=== PATIENT | female | born 1945 | race Caucasian/White ===

== ENCOUNTER 2021-03-05 07:32 | Day surgery (SDC) | payer MEDICARE, OTHER ==
[~2021-03-05] VITALS: Ht 157.5 cm; Wt 45.5 kg
[2021-03-05 08:06] LABS: ALBUMIN 3.9 g/dL (3.4-5.0); ANION GAP 13.1 mmol/L (8-16); BILIRUBIN - TOTAL 0.2 mg/dL (0.2-1.3); CALCIUM 9.5 mg/dL (8.5-10.1); CARBON DIOXIDE 28.5 mmol/L (21.0-32.0); CREATININE - SERUM 0.8 mg/dL (0.6-1.3); POTASSIUM - SERUM 3.6 mmol/L (3.5-5.1); PROTEIN - SERUM 7.7 g/dL (6.4-8.2)
[2021-03-05 08:18] LABS: BASOPHILS 0.8 % (0-2); EOSINOPHILS 2.1 % (0-7); HEMOGLOBIN 14.3 g/dL (12-16); IMMATURE GRANULOCYTES 0.2 % (0-5); LYMPHOCYTE ABS# 2.32 10x3/uL (1.18-3.74); LYMPHOCYTES 25.2 % (15-50); MCH 31.3 pg (26.0-34.0); MCHC 32.5 g/dL (31.0-37.0); MCV 96.3 fL (80.0-100.0); MEAN PLATELET VOLUME 9.7 fL (7.4-10.4); MONOCYTES 7.1 % (2-11); NEUTROPHIL ABS# 5.95 10x3/uL (1.56-6.13); NEUTROPHILS 64.6 % (40-80); RBC 4.57 10x6/uL (4.00-5.40); RDW 13.3 % (11.5-14.5); WBC 9.2 10x3/uL (4.8-10.8)
[2021-03-05 08:20] LABS: APTT 30.7 SECONDS (22.8-39.4); INR 1.05 (0.85-1.17); PROTIME 12.7 SECONDS (11.6-15.0)
[2021-03-05 08:25] LABS: PLATELET COUNT 408 10x3/uL (130-400)
[2021-03-05] MEDS ORDERED: VALIUM5 MG PO (08:48)
[2021-03-05] MEDS ORDERED: DILANTIN100 MG PO (08:48)
[2021-03-05] MEDS ORDERED: HYDROCODON-ACE1 EAC7 PO (08:49)
[2021-03-05 08:55] VITALS: BP 146/67; Ht 157.5 cm; Wt 45.5 kg
--- NOTE | 2021-03-05 14:36 | NUR ---
1250 EYE CHECKED BY Ghada COX CRNA NO ABRASION NOTED. Jewel TAVERAS R.N. 1300 UP TO BATHROOM, VOIDED. BACK TO BED. IV DC'ED WITH CATH INTACT. DRESSING. WAITING FOR ROUNDS BY DR. PFEIFFER & ORDERS. Jewel TAVERAS [address] PFEIFFER. PT DRESSED. AWAKE & ALERT. PROVIDED WITH D/C INFORMATION INCLUDING: MED REC, SHEET LISTING NSAIDS TO HOLD 14 DAYS, RTC APPT., & POST ENDOSCOPY D/C INSTRUCTIONS. PT VOICED UNDERSTANDING. TO PRIVATE CAR PER WHEELCHAIR BY STAFF. HOME WITH MR. BIRD. Jewel TAVERAS R.N.
--- NOTE | 2021-03-06 12:19 | OP ---
PATIENT NAME: ROBERT BIRD MEDICAL RECORD: [id number] :49 LOCATION:D.OPS ADMISSION DATE: SURGEON: LUIS PFEIFFER MD DATE OF OPERATION: 03/05/2021 PREOPERATIVE DIAGNOSES: 1. Iron deficiency anemia. 2. Arteriovenous malformation of the cecum. POSTOPERATIVE DIAGNOSES: 1. Iron deficiency anemia. 2. Arteriovenous malformation of the cecum with a 1.1 cm flat polyp most easily identifiable with narrow band imaging. PROCEDURES: 1. Total colonoscopy to cecum. 2. Argon plasma coagulation treatment due to arteriovenous malformation of the cecum. 3. Placement of 1 endoscopic metallic clip for procedural hemostasis. 4. Hot biopsy forceps polypectomy x1. SURGEON: Luis Pfeiffer M.D. MACHINE EGG WASHER: None. BLOOD LOSS: Minimal. ANESTHESIA: IV sedation. COMPLICATIONS: None. The risks, possible complications, and alternatives of the procedure were explained to the patient. She elects to proceed. DESCRIPTION OF PROCEDURE: The patient was extubated in the endoscopy suite electively on 03/05/2021. IV sedation was induced by the anesthesia staff. The patient was placed in the Sanches position. Digital rectal examination was performed. A colonoscope was inserted through the anus. It was easily advanced to the cecum. The prep was adequate. Within the cecum, I noted a single arteriovenous malformation, which was probably a 1.5 cm malformation. It was actively bleeding. This malformation was directly overlying a large submucosal artery. There was a good bit of pulsatility. I knew that treating this arteriovenous malformation could lead to significant hemorrhage. I prepared the endoscopy staff for this. I then obtained the argon plasma head correction officer. I turned it to the esophageal setting in the forced mode. I then completely treated the arteriovenous malformation. We then began having some submucosal punctate bleeding. I then deployed a single endoscopic clip, which achieved complete hemostasis. I irrigated and there was no bleeding. Slowly withdrew the endoscope. A combination of normal imaging and narrow band imaging were utilized. One polyp was noted. It is very likely that this polyp was noted during this endoscopy due to the excellent prep. A single hot biopsy forceps polypectomy was performed. The pullback was greater than 18-minute pullback. I dragged the folds. A retroflexed view was obtained in the rectum. I then unretroflexed the scope and removed it under direct vision. OPERATIVE REPORT [id number] ROBERT BIRD I will see the patient in my office in 2 to 3 weeks to review the results of the biopsies. My plan is to return the patient's endoscopic care back over to Dr. Fregoso. TRANSINT:[id number] Voice Confirmation ID: [id number] DOCUMENT ID: [id number] LUIS PFEIFFER MD at 1219 CC: DEENA FREGOSO MD and MANJINDER LEVI [id number] DICTATION DATE: 03/05/21 185 SENIOR MECHANICAL TECHNICIAN: 03/06/21 0054 [facility] 03/05/21 [place] [id number] [place] [id number]
--- NOTE | 2021-03-07 16:40 | HP ---
PATIENT: ROBERT BIRD MEDICAL RECORD: [id number] ACCOUNT: [id number] LOCATION:D.OPS : 49 ADMISSION DATE: 03/05/21 PCP: SYDNEY CAMPOS MD HISTORY AND PHYSICAL EXAMINATION HISTORY OF PRESENT ILLNESS: The patient has history of arteriovenous malformations of the cecum. She is here for Argon plasma coagulation therapy to those sites. The patient was diagnosed with iron-deficiency anemia, presumably due to bleeding angioectasia. ALLERGIES: ASPIRIN, IODINATED CONTRAST, KEFLEX, MACROBID. HOME MEDICATIONS: Have been reviewed. 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 SOCIAL HISTORY: Smoker. PHYSICAL EXAMINATION: GENERAL: The patient does not appear acutely ill. She does not appear chronically ill. VITAL SIGNS: Reviewed. EARS: External ears appear normal. EYES: Extraocular movements are intact. NECK: Trachea is midline. CHEST: No intercostal retractions. PULMONARY: Nonlabored. No stridor. IMPRESSION: Iron-deficiency anemia, presumably due to bleeding arteriovenous malformations of the cecum. PLAN: Colonoscopy. Argon plasma coagulation ablation of the arteriovenous malformation. TRANSINT:[id number] Voice Confirmation ID: [id number] DOCUMENT ID: [id number] LUIS PFEIFFER MD at 1640 CC: DEENA STEWATR MD and SYDNEY CAMPOS MD [id number] DICTATION DATE: 03/05/21 1130 WRONG ADDRESS CLERK: 03/05/21 1235 [facility] 03/05/21 [place] [id number] [place] [phone]
== END 2021-03-05 13:49 | disposition home or self-care (01) ==
LOC: D.OPS 07:32
PROVIDERS: Anesthesiology; ATTEND Surgery
DX: D50.9 Iron deficiency anemia, unspecified (principal); K63.5 Polyp of colon; Q27.33 Arteriovenous malformation of digestive system vessel; Z86.73 Personal history of transient ischemic attack (TIA), and cerebral infarction without residual deficits; M79.7 Fibromyalgia; Z95.0 Presence of cardiac pacemaker; G40.909 Epilepsy, unspecified, not intractable, without status epilepticus; R10.13 Epigastric pain